=== PATIENT | female | born 1955 | race African-American/Black ===

== ENCOUNTER 2016-06-30 15:57 | Emergency (ER) | payer OTHER, MEDICAID ==
[~2016-06-30] VITALS: Ht 172.7 cm; Wt 117.9 kg
[~2016-06-30 15:57] MED LIST: RANITIDINE HCL150 MG ORAL
[2016-06-30] MEDS ORDERED: Ketorolac 30mg Inj IV ONE (16:30)
[2016-06-30] MEDS ORDERED: HYDROmorphone 1 MG, DiphenhydrAMINE 25 MG in NS 55 ML IVPB ONE (16:30)
[2016-06-30] MEDS ORDERED: HYDROmorphone 1mg/ml Carpuject ONE (17:03)
[2016-06-30] MEDS ORDERED: DiphenhydrAMINE 50mg/ml Inj ONE (17:04)
[2016-06-30] MEDS ORDERED: NS 55 ML IV ONE (17:04)
--- NOTE | 2016-06-30 17:16 | Emergency Room Report ---
History of Present Illness General Chief Complaint: Lower Back Pain or Injury Source: Patient, Medical Record Present Illness HPI Patient is a 60-year-old female brought in by EMS after increased low back pain. Patient prior history of chronic pain which is in pain management. Patient stated that she had increased pain to her low back in the middle of her low back. Patient any recent trauma. Patient stated that she had no recent fever. She had previously been seeing a pain management having lumbar injections. The patient denied any fever she denied any dysuria.The patient gradual onset of pain. The patient brought in by EMS. Allergies: Coded Allergies: IODINE (Unverified Allergy, Unknown, 05/23/14) MEPERIDINE (Unverified Allergy, Unknown, 05/23/14) MORPHINE (Unverified Allergy, Unknown, 05/23/14) PENICILLINS (Unverified Allergy, Unknown, 05/23/14) Patient History Past Medical History: see triage record Reviewed Nursing Documentation: PMH: Agreed, PSxH: Agreed Nursing Documentation-PMH Past Medical History: No History, Except For Hx Hypertension: Yes Hx Asthma: Yes Hx Diabetes: Yes Hx Cancer: Yes - BRAIN TUMOR Review of Systems All Other Systems: negative except mentioned in HPI Physical Exam Vital Signs Date Time Temp Pulse Resp B/P Pulse Ox O2 Delivery O2 Flow Rate FiO2 06/30/16 16:00 98.4 81 16 127/57 96 Room Air General Appearance: well appearing, no apparent distress, alert, GCS 15 Head: normocephalic, atraumatic ENT: hearing grossly normal, normal voice Neck: full range of motion, supple Respiratory: no respiratory distress, speaking full sentences Musculoskeletal: no calf tenderness Neurologic: normal gait Psychiatric: mood/affect normal Skin: no rash Medical Decision Making Diagnostic Impression: Primary Impression: Low back pain Additional Impressions: UTI (urinary tract infection) Chronic pain ER Course Patient presented for back pain. Differential diagnosis included but was not limited to herniated disc, cauda equina syndrome, abdominal aortic aneurysm, perforated ulcer, spinal epidural abscess, spinal stenosis, lumbar fracture, metastatic lesion, pyelonephritis. Patient was given IV pain medications. A urinalysis is ordered due to the patient's symptomatologyPatient was given protrusion for Macrobid for what appeared to urinary tract infection. Patient was given pain medications. After pain medication patient to be awake alert and oriented. The patient is advised to follow up with primary care doctor in 1-2 days. Patient is advised to return if any worsening condition or if any changes in status that are concerning. Labs Test 06/30/16 16:45 Urine Ictotest Negative Urine RBC 2-4 /HPF (0 - 2) Urine WBC 5-10 /HPF (0 - 2) Urine Squamous Epithelial Cells Few /LPF (NONE/OCC) Urine Bacteria Few /HPF (NONE) Urine Opiates Screen Positive (NEGATIVE) Urine Barbiturates Screen Negative (NEGATIVE) Phencyclidine (PCP) Screen Negative (NEGATIVE) Urine Amphetamines Screen Positive (NEGATIVE) Urine Benzodiazepines Screen Negative (NEGATIVE) Urine Cocaine Screen Negative (NEGATIVE) Urine Marijuana (THC) Screen Positive (NEGATIVE) Last Vital Signs Date Time Temp Pulse Resp B/P Pulse Ox O2 Delivery O2 Flow Rate FiO2 06/30/16 16:00 98.4 81 16 127/57 96 Room Air Status: improved Disposition: HOME, SELF-CARE Condition: Stable Scripts Nitrofurantoin Monohyd/M-Cryst* (MACROBID 100 MG*) 100 Mg Capsule 100 MG ORAL EVERY 12 HOURS, #10 CAP Prov: Neil Finn 06/30/16 Neil Finn June 30, 2016 17:16
[2016-06-30 17:29] LABS: APPEARANCE,URINE CLEAR; KETONES,URINE 1+ (NEGATIVE); LEUKOCYTE ESTERASE ,URINE 2+ (NEGATIVE); NITRITE,URINE NEGATIVE (NEGATIVE); PH,URINE 5 (4.5-8.0); PROTEIN,URINE 1+ (NEGATIVE); UROBILINOGEN,URINE 1 MG/DL (0.0-1.0)
[2016-06-30 17:38] LABS: BACTERIA,URINE FEW /HPF; SQUAMOUS EPITHELIAL CELL,UR FEW /LPF (NONE/OCC)
[2016-06-30 17:41] VITALS: BP 132/78
[2016-06-30 17:45] LABS: ICTOTEST NEGATIVE
[2016-06-30] MEDS ORDERED: NITROFURANTOIN100 M2 ORAL (17:58)
[2016-06-30 19:35] VITALS: BP 150/92
[2016-06-30 20:50] VITALS: BP 151/94
== END 2016-06-30 21:00 | disposition home or self-care (01) ==
LOC: EDBD 15:57 → EMR 17:31
DX: M54.5 Low back pain (principal); N39.0 Urinary tract infection, site not specified; G89.29 Other chronic pain; Z88.6 Allergy status to analgesic agent; Z88.0 Allergy status to penicillin; I10 Essential (primary) hypertension; J45.909 Unspecified asthma, uncomplicated; E11.9 Type 2 diabetes mellitus without complications; Z85.841 Personal history of malignant neoplasm of brain
CPT/HCPCS: 80300; 81001; 96374; 96375; 99284; J1170; J1200; J1885